=== PATIENT | male | born 1945 | race Caucasian/White ===

== ENCOUNTER 2018-09-01 00:59 | Outpatient (CLI) | payer MEDICARE, BC, SELFPAY ==
[2018-09-01 11:14] LABS: Hemoglobin A1C 6.4 % (4.5-6.2)
== END 2018-09-01 01:19 ==
PROVIDERS: PCP Family Medicine; Visit Provider Family Medicine
DX: E11.9 Type 2 diabetes mellitus without complications (principal)
CPT/HCPCS: 36415; 83036

== ENCOUNTER 2019-03-03 02:50 | Outpatient (CLI) | payer MEDICARE, BC, SELFPAY ==
[2019-03-03 14:08] LABS: Hemoglobin A1C 6.6 % (4.5-6.2)
== END 2019-03-03 03:10 ==
PROVIDERS: PCP Family Medicine; Visit Provider Family Medicine
DX: E11.9 Type 2 diabetes mellitus without complications (principal)
CPT/HCPCS: 36415; 83036

== ENCOUNTER 2019-03-16 01:23 | Outpatient (CLI) | payer MEDICARE, BC, SELFPAY ==
--- NOTE | 2019-03-16 13:06 | DI.CTLCSR_ITS ---
SYMPTOMS/DIAGNOSIS: TOBACCO ABUSE, CURRENT SMOKER, V15.82, Z72.0, 40-50 PACK- YEAR HISTORY CT CHEST, LOW DOSE LUNG CANCER SCREENING PROTOCOL: CT examination of the chest was performed without contrast administration utilizing low dose lung cancer screening protocol. Previous CT of 06/23/17 showed two pulmonary nodules in the left lung base, one in the upper lobe and one in the lower lobe, measuring 9-10 mm and 8 mm in greatest diameter, respectively. The more superior nodule was elongated and flattened on multiplanar imaging. The nodules are unchanged in appearance on today's examination. An additional 8 mm nodule is also present in the right lower lobe, unchanged from the previous study. A poorly defined area of ground-glass opacities is also seen, which lies in the left lower lobe, which is unchanged from the previous exam. Prominent subpleural emphysema is noted at multiple sites with a large right lower lobe bleb. Tracheobronchial tree appears intact. No gross mediastinal mass or adenopathy. No pleural effusion or pleural-based mass. Images obtained through the upper abdomen show unremarkable appearance of visualized portions of the liver, spleen, pancreas, adrenals and kidneys. CONCLUSION: Stable left basilar intrapulmonary nodules since 06/13/17. Category 2. Lung-RAD Category: Category 2- Benign Appearance/Behavior Lung- RAD Management of Findings: Continue annual LDCT screening in 12 months
== END 2019-03-16 01:43 ==
PROVIDERS: PCP Family Medicine; Visit Provider Family Medicine
DX: Z12.2 Encounter for screening for malignant neoplasm of respiratory organs (principal); F17.200 Nicotine dependence, unspecified, uncomplicated; R91.8 Other nonspecific abnormal finding of lung field; J43.9 Emphysema, unspecified; Z87.891 Personal history of nicotine dependence
CPT/HCPCS: G0297

== ENCOUNTER 2019-08-31 01:47 | Outpatient (CLI) | payer MEDICARE, BC, SELFPAY ==
[2019-08-31 14:04] LABS: Hemoglobin A1C 6.4 % (4.5-6.2)
== END 2019-08-31 02:07 ==
PROVIDERS: PCP Family Medicine; Visit Provider Family Medicine
DX: E11.9 Type 2 diabetes mellitus without complications (principal)
CPT/HCPCS: 36415; 83036

== ENCOUNTER 2020-01-15 13:35 | Outpatient (CLI) | payer MEDICARE, BC, SELFPAY ==
--- NOTE | 2020-01-15 12:47 | DI.RAD_ITS ---
EXAM: XR SHOULDER RT COMPLETE 2+V CLINICAL HISTORY: CHRONIC RIGHT SHOULDER PAIN, M25.511, G89.29. TECHNIQUE: 2D digital imaging was performed. COMPARISON: No exams were available for comparison FINDINGS: BONES: No acute fracture is present. No bony destructive lesion is seen. JOINTS: No dislocation present. Mild degenerative changes are seen at the acromioclavicular joint. T he glenohumeral joint is well maintained. SOFT TISSUE: Normal. IMPRESSION: Mild degenerative changes of the right shoulder. DATA REPOSITORY: RADIATION DOSE DELIVERED:
== END 2020-01-15 13:55 ==
PROVIDERS: PCP Family Medicine; Visit Provider Nurse Practitioner Family
DX: M25.511 Pain in right shoulder (principal); M19.011 Primary osteoarthritis, right shoulder; G89.29 Other chronic pain
CPT/HCPCS: 73030

== ENCOUNTER → 2020-01-31 10:10 | Outpatient (BNVA) | payer MEDICARE, BC, SELFPAY | PROVIDERS: PCP Family Medicine; Referring Provider Nurse Practitioner Family; Visit Provider Student in an Organized Health Care Education/Training Program | DX: M75.21 Bicipital tendinitis, right shoulder (principal); M75.101 Unspecified rotator cuff tear or rupture of right shoulder, not specified as traumatic; M12.811 Other specific arthropathies, not elsewhere classified, right shoulder | CPT/HCPCS: 20610; 99204; 99215; J1040 ==

== ENCOUNTER → 2020-03-20 10:32 | Outpatient (BNVA) | payer MEDICARE, BC, SELFPAY | PROVIDERS: PCP Family Medicine; Referring Provider Family Medicine; Visit Provider Student in an Organized Health Care Education/Training Program | DX: M75.21 Bicipital tendinitis, right shoulder (principal); M75.101 Unspecified rotator cuff tear or rupture of right shoulder, not specified as traumatic; M12.811 Other specific arthropathies, not elsewhere classified, right shoulder; J44.9 Chronic obstructive pulmonary disease, unspecified; E11.9 Type 2 diabetes mellitus without complications; Z79.84 Long term (current) use of oral hypoglycemic drugs; F17.200 Nicotine dependence, unspecified, uncomplicated | CPT/HCPCS: 99213 ==

== ENCOUNTER → 2020-05-15 09:30 | Outpatient (BNVA) | payer MEDICARE, BC, SELFPAY | PROVIDERS: PCP Family Medicine; Referring Provider Family Medicine; Visit Provider Student in an Organized Health Care Education/Training Program | DX: M75.21 Bicipital tendinitis, right shoulder (principal); M75.101 Unspecified rotator cuff tear or rupture of right shoulder, not specified as traumatic; M12.811 Other specific arthropathies, not elsewhere classified, right shoulder; M75.51 Bursitis of right shoulder | CPT/HCPCS: 99213 ==

== ENCOUNTER → 2020-08-14 13:17 | Outpatient (BNVA) | payer MEDICARE, BC, SELFPAY | PROVIDERS: PCP Family Medicine; Referring Provider Family Medicine; Visit Provider Student in an Organized Health Care Education/Training Program | DX: M75.21 Bicipital tendinitis, right shoulder (principal); M75.101 Unspecified rotator cuff tear or rupture of right shoulder, not specified as traumatic; M12.811 Other specific arthropathies, not elsewhere classified, right shoulder; M75.51 Bursitis of right shoulder; E11.9 Type 2 diabetes mellitus without complications; J44.9 Chronic obstructive pulmonary disease, unspecified | CPT/HCPCS: 99213 ==

== ENCOUNTER 2020-09-11 01:16 | Outpatient (CLI) | payer MEDICARE, BC, SELFPAY ==
--- NOTE | 2020-09-11 14:35 | DI.CTLCSR_ITS ---
EXAM: CT CHEST LUNG CANCER SCREEN CLINICAL HISTORY: Screening for lung cancer, CURRENT SMOKER, F17.210 TECHNIQUE: Imaging Protocol: Axial computed tomography images with coronal and sagittal reformatted images were created and reviewed COMPARISON: CT CT CHEST LUNG CANCER SCREEN from 03/16/2019 FINDINGS: Tracheobronchial tree: Patent where visualized. Mediastinum and Dori: No dominant adenopathy or fluid collection. Pulmonary parenchyma: No consolidation or dominant measurable mass. Emphysematous changes are present in the lungs. Lung Nodules: There are stable pulmonary nodules in the left upper lobe in the left lower lobe. No n ew pulmonary nodules. Pleura: No effusion or pneumothorax. Heart: The heart is not dilated. Moderate coronary artery calcification. No pericardial effusion. Aorta: Thoracic aorta non-dilated.Atherosclerosis. Upper abdomen: Status post cholecystectomy. Bones: Degenerative changes. Soft Tissues: Unremarkable. IMPRESSION: Stable pulmonary nodules. No new pulmonary nodules. Lung RADS Cat 2 - Benign Appearance / Behavior: Nodules with a very low likelihood of becoming a clin ically active cancer due to size or lack of growth Lung-RADS 1.0 CATEGORIES: Category 0 - Prior chest CT exam(s) being located for comparison. Category 1 - Annual screening in 12 months. No nodules or definitely benign nodules. Category 2 - Annual screening in 12 months. Benign appearance. Nodules with low likelihood of becomin g active cancer. Category 3 - 6-month follow-up. Probably benign. Short-term follow-up suggested. Nodules with low lik elihood of becoming active cancer. Category 4A - 3-month follow-up and CT/PET if >8 mm in size. Suspicious finding. Findings which requi re additional testing. Category 4B - Findings which require additional testing and tissue sampling. Suspicious finding. C Added to Any of the Above - History of prior lung cancer screening. S Added to Any of the Above - Significant unexpected other finding. RADIATION DOSE DELIVERED: 84.91mGy.cm Total DLP DATA REPOSITORY: All CT scans at this facility are submitted to the National Radiology Data Registry (NRDR) Dose Index Registry (DIR) with the [employer] ([employer]). RADIATION OPTIMIZATION: All CT scans at this facility use at least one of these dose optimization te chniques: automated exposure control; mA and/or kV adjustment per patient size (includes targeted exa ms where dose is matched to clinical indication); or iterative reconstruction.
== END 2020-09-11 01:36 ==
PROVIDERS: PCP Family Medicine; Visit Provider Family Medicine
DX: F17.210 Nicotine dependence, cigarettes, uncomplicated (principal); R91.8 Other nonspecific abnormal finding of lung field
CPT/HCPCS: G0297

== ENCOUNTER 2021-03-17 03:16 | Outpatient (CLI) | payer MEDICARE, BC, SELFPAY ==
[2021-03-17 11:39] LABS: Calculated LDL 90 mg/dL (<100); Cholesterol 149 mg/dL (<200); HDL Cholesterol 42 mg/dL (40-60); Triglyceride 85 mg/dL (<150)
[2021-03-17 11:43] LABS: Hemoglobin A1C 6.5 % (<5.7)
== END 2021-03-17 03:17 | disposition home or self-care (01) ==
LOC: LOS 03:16
PROVIDERS: PCP Family Medicine; Visit Provider Family Medicine
DX: E11.65 Type 2 diabetes mellitus with hyperglycemia (principal); E78.5 Hyperlipidemia, unspecified
CPT/HCPCS: 36415; 80061; 82565; 83036

== ENCOUNTER 2021-09-11 02:45 | Outpatient (CLI) | payer MEDICARE, BC, SELFPAY ==
[2021-09-11 12:29] LABS: Calculated LDL 100 mg/dL (<100); Cholesterol 175 mg/dL (<200); HDL Cholesterol 40 mg/dL (40-60); Triglyceride 176 mg/dL (<150)
[2021-09-11 12:39] LABS: Hemoglobin A1C 6.5 % (<5.7)
== END 2021-09-11 02:46 | disposition home or self-care (01) ==
LOC: LOS 02:46
PROVIDERS: PCP Family Medicine; Visit Provider Family Medicine
DX: I10 Essential (primary) hypertension (principal); E78.5 Hyperlipidemia, unspecified; R73.9 Hyperglycemia, unspecified
CPT/HCPCS: 36415; 80061; 82565; 83036

== ENCOUNTER 2021-09-16 12:03 | Outpatient (REF) | payer MEDICARE, BC, SELFPAY ==
[2021-09-16 13:21] LABS: Bacteria Rare HPF (Negative); C & S Indicated? No; Casts Negative LPF (Negative); Crystals Negative HPF (Negative); Epithelial Cells Rare HPF (Negative); Mucus Negative (Negative); WBC 0-2 HPF (0-5)
[2021-09-17 04:44] LABS: COMMENT (LAB VIEW ONLY) 84.65 mg/dL; Microalb ug/mg Crea 10.9 ug/mg Cr
== END 2021-09-16 12:04 | disposition home or self-care (01) ==
LOC: LBN 12:03
PROVIDERS: PCP Family Medicine; Visit Provider Family Medicine
DX: E11.9 Type 2 diabetes mellitus without complications (principal); R30.0 Dysuria
CPT/HCPCS: 81015; 82043; 82570

== ENCOUNTER 2021-10-06 00:31 | Outpatient (CLI) | payer MEDICARE, BC, SELFPAY ==
--- NOTE | 2021-10-06 13:35 | DI.CTLCSR_ITS ---
Exam(s) CT CHEST LUNG CANCER SCREEN EXAM: CT CHEST LUNG CANCER SCREEN CLINICAL HISTORY: Screening for lung cancer,current smoker, f17.210. TECHNIQUE: Imaging Protocol: Low Dose Technique CONTRAST MATERIAL: None COMPARISON: CT CT CHEST LUNG CANCER SCREEN from 03/16/[address] CHEST LUNG CANCER SCREEN from 03/16/[address] CHEST LUNG CANCER SCREEN from 09/11/2020 FINDINGS: CHEST: LUNGS: The previously described 6 millimeter nodule in the lateral basal segment of the left lower lo be is unchanged.. Another left lung nodule evident in the superior lingular segment is also again no medhat, unchanged, measuring approximately 1.2 by 0.8 cm. In addition, there is a ground-glass nodular infiltrate in the left lower lobe again noted measuring approximately 2.5 1.6 cm, exhibiting minimal change from the 2 prior studies listed above.. In the opposite-right lung there are no new significant focal findings. Multiple bullae in both lung smart are again noted. No new findings in trachea and mainstem bronchi. No pleural effusions on e ither side. MEDIASTINUM: There is no obvious hilar nor mediastinal adenopathy. CARDIAC: Heart size is normal. There is no pericardial effusion.Caliber of the thoracic aorta is wit hin normal limits. OTHER: OSSEOUS: No significant osseous lesions.. IMPRESSION: 1. Continued stable appearance of the previously described left lung findings including 2 nodules any nodular-type ground-glass infiltrate. These findings exhibits minimal if any significant change whe n compared to prior CT scans dating back to March 2019. 2. There are no pleural effusions. 3. Lung RADS Cat 2 - Benign Appearance / Behavior: Nodules with a very low likelihood of becoming a c linically active cancer due to size or lack of growth Lung-RADS 1.0 CATEGORIES: Category 0 - Prior chest CT exam(s) being located for comparison. Category 1 - Annual screening in 12 months. No nodules or definitely benign nodules. Category 2 - Annual screening in 12 months. Benign appearance. Nodules with low likelihood of becomin g active cancer. Category 3 - 6-month follow-up. Probably benign. Short-term follow-up suggested. Nodules with low lik elihood of becoming active cancer. Category 4A - 3-month follow-up and CT/PET if >8 mm in size. Suspicious finding. Findings which requi re additional testing. Category 4B - Findings which require additional testing and tissue sampling. Modifier S- Potentially clinically significant findings (non lung cancer) RADIATION DOSE DELIVERED: 84.87mGy.cm Total DLP 1.84mGy CTDIvol DATA REPOSITORY: All CT scans at this facility are submitted to the National Radiology Data Registry (NRDR) Dose Index Registry (DIR) with the [employer] (A[employer]). RADIATION OPTIMIZATION: All CT scans at this facility use at least one of these dose optimization te chniques: automated exposure control; mA and/or kV adjustment per patient size (includes targeted exa ms where dose is matched to clinical indication); or iterative reconstruction.
== END 2021-10-06 00:51 ==
PROVIDERS: PCP Family Medicine; Visit Provider Family Medicine
DX: Z12.2 Encounter for screening for malignant neoplasm of respiratory organs (principal); F17.210 Nicotine dependence, cigarettes, uncomplicated; R91.8 Other nonspecific abnormal finding of lung field
CPT/HCPCS: 71271

== ENCOUNTER 2022-09-15 03:47 | Outpatient (CLI) | payer MEDICARE, SELFPAY ==
[2022-09-15 13:57] LABS: Hemoglobin A1C 6.3 % (<5.7)
== END 2022-09-15 03:48 | disposition home or self-care (01) ==
LOC: LBO 03:47
PROVIDERS: PCP Family Medicine; Visit Provider Family Medicine
DX: E11.9 Type 2 diabetes mellitus without complications (principal)
CPT/HCPCS: 36415; 82565; 83036

== ENCOUNTER 2023-06-22 03:15 | Outpatient (CLI) | payer MEDICARE, SELFPAY ==
[2023-06-22 13:40] LABS: Hemoglobin A1C 6.3 % (<5.7)
[2023-06-22 13:45] LABS: CREATININE 1.1 mg/dL (0.70-1.30); Calculated LDL 76 mg/dL (<100); Cholesterol 155 mg/dL (<200); Estimated GFR 68.71 (mL/min/1.73m2); HDL Cholesterol 44 mg/dL (40-60); Triglyceride 176 mg/dL (<150)
== END 2023-06-22 03:16 | disposition home or self-care (01) ==
PROVIDERS: PCP Family Medicine; Visit Provider Family Medicine
DX: E11.51 Type 2 diabetes mellitus with diabetic peripheral angiopathy without gangrene (principal); I10 Essential (primary) hypertension; E78.5 Hyperlipidemia, unspecified
CPT/HCPCS: 36415; 80061; 82565; 83036

== ENCOUNTER 2024-08-23 09:50 | Outpatient (CLI) | payer MEDICARE, SELFPAY ==
[2024-08-23 13:32] LABS: Estimated GFR 76.56 (mL/min/1.73m2); Magnesium 2.3 mg/dL (1.8-2.4); Vitamin B12 447 pg/mL (193-986)
[2024-08-23 19:31] LABS: Hepatitis C Ab w Rflx HCV PCR Negative (Negative)
== END 2024-08-23 09:51 | disposition home or self-care (01) ==
LOC: LOS 09:51
PROVIDERS: PCP Family Medicine; Referring Provider Family Medicine; Visit Provider Family Medicine
DX: Z11.59 Encounter for screening for other viral diseases (principal); I10 Essential (primary) hypertension; D64.9 Anemia, unspecified; E83.42 Hypomagnesemia; F17.200 Nicotine dependence, unspecified, uncomplicated
CPT/HCPCS: 36415; 86803; 82565; 82607; 83735

== ENCOUNTER 2025-01-11 02:12 | Outpatient (CLI) | payer MEDICARE, SELFPAY ==
--- NOTE | 2025-01-11 | DI.US_ITS ---
Exam(s) US AAA SCREENING EXAM: US AAA SCREENING CLINICAL HISTORY: SCREENING FOR AAA, ANNUAL, SMOKER, F17.200 COMPARISON: US ABDOMEN ULTRASOUND from 01/22/[address] CHEST LUNG CANCER SCREEN from 10/06/2021 FINDINGS: There is moderate atherosclerotic involvement of the abdominal aorta The diameter the most proximal aspect the abdominal aorta is minimally prominent, measuring 2.7 cm Maximum diameter of the mid abdominal aorta is 2.5 cm and maximum diameter of the distal abdominal ao rta is 2.3 cm. Both common iliac arteries exhibit upper normal-minimally prominent diameters for this age group (1.4 cm). IMPRESSION: Moderate atherosclerotic involvement of the abdominal aorta. Mildly ectatic but no significant focal aneurysm evident. DATA REPOSITORY:
== END 2025-01-11 02:32 ==
LOC: DI 02:13
PROVIDERS: PCP Family Medicine; Visit Provider Family Medicine
DX: Z13.6 Encounter for screening for cardiovascular disorders (principal); F17.210 Nicotine dependence, cigarettes, uncomplicated
CPT/HCPCS: 76706